=== PATIENT | male | born 1955 | race Caucasian/White ===

== ENCOUNTER 2017-08-29 14:42 | Emergency (ER) | payer BC ==
[~2017-08-29] VITALS: Ht 170.2 cm; Wt 68.0 kg
[2017-08-29 15:30] LABS: BASOPHILS % 0.5 % (0.0-1.0); EOSINOPHILS # (AUTO) 0.3 (0.0-0.4); EOSINOPHILS % 3.5 % (0.0-6.0); HEMATOCRIT 40.4 % (38.2-49.6); HEMOGLOBIN 14.9 g/dL (14.0-18.0); LYMPHOCYTES # (AUTO) 1.9 (1.0-3.2); LYMPHOCYTES % 22.2 % (18.0-39.1); MEAN CORPUSCULAR HEMOGLOBIN 33.3 pg (28-32); MEAN CORPUSCULAR HGB CONC 36.9 g/dL (31-35); MEAN CORPUSCULAR VOLUME 90.4 fL (81-99); MONOCYTES # (AUTO) 0.6 (0.2-0.8); MONOCYTES % 7.2 % (4.4-11.3); NEUTROPHILS # (AUTO) 5.7 (2.1-6.9); NEUTROPHILS % 66.4 % (38.7-80.0); PLATELET COUNT 168 x10e3/uL (140-360); RED BLOOD COUNT 4.47 x10e6/uL (4.3-5.7); RED CELL DISTRIBUTION WIDTH 12.2 % (11.7-14.4)
[2017-08-29 15:34] LABS: CLARITY,URINE CLEAR (CLEAR); COLOR,URINE YELLOW (YELLOW); KETONES,URINE NEGATIVE (NEGATIVE); LEUKOCYTE ESTERASE ,URINE TRACE (NEGATIVE); NITRITE,URINE NEGATIVE (NEGATIVE); PROTEIN,URINE DIPSTICK NEGATIVE (NEGATIVE)
[2017-08-29 15:35] LABS: BILIRUBIN,URINE NEGATIVE (NEGATIVE); URINE UROBILINOGEN 0.2 mg/dL (0.2 - 1)
[2017-08-29 15:42] LABS: ALANINE AMINOTRANSFERASE 36 IU/L (0-55); ALBUMIN 4.6 g/dL (3.5-5.0); ALBUMIN/GLOBULIN RATIO 1.3 (0.8-2.0); ALKALINE PHOSPHATASE 68 IU/L (40-150); ANION GAP 13.8 mmol/L (8-16); BLOOD UREA NITROGEN 11 mg/dL (7-26); BUN/CREATININE RATIO 10 (6-25); CALCIUM 10.2 mg/dL (8.4-10.2); CARBON DIOXIDE 28 mmol/L (22-29); CHLORIDE 104 mmol/L (98-107); CREATINE KINASE 58 IU/L (30-200); CREATININE, SERUM 1.06 mg/dL (0.72-1.25); EST GLOMERULAR FILTRATION RATE > 60 ML/MIN (60-); GLUCOSE 95 mg/dL (74-118); POTASSIUM 3.8 mmol/L (3.5-5.1); SODIUM 142 mmol/L (136-145)
[2017-08-29 15:43] LABS: BACTERIA,URINE RARE /HPF; MUCUS,URINE RARE (RARE); RBC,URINE 0-5 /HPF (0-5)
--- NOTE | 2017-08-29 16:16 | Diagnostic Imaging Report ---
EXAMINATION: Head CT HISTORY: Right-sided weakness and numbness since 9:30 AM today. COMPARISON: None. TECHNIQUE: Multidetector axial images were obtained none available contrast from the foramen magnum to the vertex . The images were reconstructed using brain and bone algorithms. Thin section brain images were reformatted into coronal and sagittal planes. Intravenous contrast: None. Image quality: Motion/streaking artifact limits the evaluation of the skull base and posterior cranial fossa. FINDINGS: Parenchyma: 1. Ill-defined at least 3 rounded lesions measuring 0.8 to 1.3 cm diameter (in the right lateral precentral, right inferior parietal and left post central regions), with prominent surrounding vasogenic edema and with mild local mass effect/sulci effacement. No discrete hemorrhagic component or midline shift/herniation at this time. 2. No hemorrhage or acute territorial cortical vascular insults. Extra-axial spaces:No abnormal density. No extra-axial fluid collections Brain volume: Normal for age. Ventricles: No hydrocephalus or displacement. Arteries: No density suggestive of thrombus. Dural sinuses: No abnormal density. Extra-axial spaces: No abnormal density. Foramen magnum: No mass, Chiari malformation, or basilar invagination. Sella: No obvious mass. Paranasal/mastoid sinuses: Imaged portions unremarkable. Skull/Scalp: No lytic or blastic lesions. No fractures. IMPRESSION: At least 3 supratentorial lesions with surrounding vasogenic edema and mild local mass effect, worrisome for metastatic disease. A brain MRI without and with contrast is recommended for further evaluation of possible additional lesions. The findings were discussed with the ER physician Dr. Heart at the time of this dictation. Signed by: Dr. Eliane Houston M.D. on 08/29/2017 4:13 PM
[2017-08-29] MEDS ORDERED: DEXAMETHASONE SOD PHOS 10 MG/1 ML VIAL IV ONE (18:45)
== END 2017-08-29 20:08 | disposition short-term general hospital (02) ==
LOC: ER 14:42
DX: R53.1 Weakness (principal); R22.0 Localized swelling, mass and lump, head; G93.9 Disorder of brain, unspecified; R26.2 Difficulty in walking, not elsewhere classified; R91.8 Other nonspecific abnormal finding of lung field
CPT/HCPCS: 36415; 70450; 80053; 81001; 82550; 82553; 84484; 85025; 93005; 99284; J1100

== ENCOUNTER → 2017-10-08 | Outpatient (CLI) | payer BC | LOC: RAD 08:40 | PROVIDERS: ATTEND Internal Medicine | DX: C43.59 Malignant melanoma of other part of trunk (principal); C43.9 Malignant melanoma of skin, unspecified | CPT/HCPCS: 93005; 93306 ==